=== PATIENT | female | born 1950 | race Caucasian/White ===

== ENCOUNTER 2017-03-31 05:48 | Observation (INO) ==
[2017-03-31] MEDS ORDERED: ASPIRIN PO ONE (06:17)
[2017-03-31] MEDS ORDERED: NITROGLYCERIN TOP ONE (06:17)
[2017-03-31 06:32] LABS: MANUAL DIFF NEEDED? NO
--- NOTE | 2017-03-31 06:33 | PROVIDER DOCUMENTATION ---
HPI-Cardiac General - General Chief Complaint: Shortness of Breath Stated Complaint: SOB Time Seen by Provider: 03/31/17 06:06 Source: patient, old records Allergies/Adverse Reactions: Patient Allergies Allergy/AdvReac Type Severity Reaction Status Date / Time atorvastatin calcium * Allergy Intermediate ITCHING, Verified 03/31/17 06:11 [From Lipitor] HEADACHE egg Allergy Unknown Verified 03/31/17 06:11 milk Allergy Unknown Verified 03/31/17 06:11 Home Medications: Home Medication List Medication Instructions Recorded Confirmed Last Taken Type Levothyroxine Sodium [Synthroid] 175 microgm PO DAILY 07/31/12 03/31/17 07:00 History Quetiapine [Seroquel] 300 mg PO QHS 07/31/12 03/31/17 03/30/17 20:00 History Rosuvastatin Calcium [Crestor] 20 mg PO DAILY 06/24/13 03/31/17 03/30/17 07:00 History Clopidogrel [Plavix] 75 mg PO DAILY 01/24/15 03/31/17 03/30/17 07:00 History Promethazine [Phenergan] 25 mg PA Q6H PRN PRN 01/25/15 03/31/17 04/24/15 History Venlafaxine E.r. [Effexor Xr] 150 mg PO QHS 04/24/15 03/31/17 03/30/17 20:00 History Hydrocodone Bit/Acetaminophen 1 each PO Q6-8H PRN PRN #0 04/10/16 03/31/17 Unknown Rx [Hydrocodon-Acetaminophn 10-325] Nicotine Patch [Nicoderm Patch] 21 mg TD DAILY #0 patch.td24 04/10/16 03/31/17 Unknown Rx Clonazepam [Klonopin] 2 mg PO BID 03/31/17 03/31/17 03/30/17 20:00 History Linaclotide [Linzess] 145 mcg PO DAILY 03/31/17 03/31/17 03/30/17 07:00 History - History of Present Illness-Cardiac Nature of Presenting Problem: pt states recurring episodes of chest "tightness" w/ dyspnea past 2 days, then awoke this a.m. w/ dyspnea and "felt like a bag of flour on my chest." reports hx of normal card cath ~ 5 yrs ago. CAD RF incl hx of tobacco, and lipids on Crestor. no exertional component, no diaphoresis, no emesis. Review of Systems - Adult - REVIEW OF SYSTEMS - ADULT Constitutional: reports: no symptoms reported Eyes: reports: no symptoms reported Ears, Nose, Mouth & Throat: reports: no symptoms reported Cardiovascular: reports: see HPI Respiratory: reports: see HPI Gastrointestinal: reports: no symptoms reported Genitourinary: reports: no symptoms reported Musculoskeletal: reports: no symptoms reported Integumentary: reports: no symptoms reported Neurological: reports: no symptoms reported Psychiatric: reports: no symptoms reported Endocrine: reports: no symptoms reported Hematologic/Lymphatic: reports: no symptoms reported Allergic/Immunologic: reports: no symptoms reported All Other Systems: Reviewed and Negative Past History - Adult - PAST MEDICAL HISTORY-ADULT Review of Records: reports: Old Records Reviewed Major Childhood Illnesses: reports: denies history Cardiovascular: reports: HTN, hyperlipidemia Respiratory: reports: denies history Gastrointestinal: reports: denies history Obstetrical/Gynecological: reports: denies history Genitourinary: reports: denies history Musculoskeletal: reports: denies history Neurological: reports: CVA, other (2 brain aneurysms) Psychiatric: reports: depression Endocrine/Immune: reports: thyroid disorder (hypothyroidism) Other Conditions: reports: blindness (right eye) - PRIOR SURGERIES/PROCEDURES Surgical/Procedure History: reports: appendectomy, hysterectomy, other ( endardectomy) - IMMUNIZATION STATUS Childhood Immunizations: See Nurse Assessment Flu Vaccine: See Nurse Assessment - FAMILY HISTORY Family History: reviewed, not pertinent Physical Exam-General - PHYSICAL EXAM-ADULT Initial Vital Signs Reviewed: Yes - CONSTITUTIONAL General Appearance: appears well, alert, no apparent distress - EYES Eyes: PERRL/EOMI, pink conjunctivae - HEAD, EARS, NOSE, MOUTH & THROAT HENMT: normocephalic/atraumatic, normal ENT inspection, pharynx normal - NECK Neck: non-tender, full range of motion, supple, normal inspection. negative: carotid bruit - RESPIRATORY Respiratory: chest non-tender, lungs clear - CARDIOVASCULAR Cardiovascular: normal peripheral pulses, regular rate, rhythm, no edema, no gallop, no JVD - GASTROINTESTINAL (ABDOMEN) Abdominal Exam: normal bowel sounds, soft, distended. 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, no motor/sensory deficits - PSYCHIATRIC Psych/Mental Status: normal mood/affect Progress - PLAN OF CARE/RESULTS Progress/Plan/Lab Results: Vital Signs - 8 hr 03/31/17 09:40 03/31/17 10:23 03/31/17 11:30 Pulse Rate 89 92 H 89 Respiratory Rate 19 18 18 Blood Pressure 133/73 104/62 146/86 O2 Sat by Pulse Oximetry 99 100 96 Laboratory Results - last 24 hr 03/31/17 03/31/17 03/31/17 05:59 05:59 05:59 WBC 7.25 RBC 4.39 Hgb 13.4 Hct 37.6 MCV 85.6 MCH 30.5 MCHC 35.6 RDW Std Deviation 12.4 Plt Count 227 MPV 10.4 Immature Gran % (Auto) 0.3 Neut % (Auto) 50.3 Lymph % (Auto) 37.9 [place] % (Auto) 9.1 Eos % (Auto) 2.1 Baso % (Auto) 0.3 Immature Gran # (Auto) 0.02 Neut # (Auto) 3.65 Lymph # (Auto) 2.75 [place] # (Auto) 0.66 H Eos # (Auto) 0.15 Baso # (Auto) 0.02 PT INR D-Dimer 0.23 Sodium 136 Potassium 4.2 Chloride 99 Carbon Dioxide 22 L Anion Gap 15 BUN 10 Creatinine 0.6 Estimated GFR/1.73 m2 > 60 BUN/Creatinine Ratio 17 Glucose 166 H Calculated Osmolality 275 Calcium 9.5 Magnesium 1.9 Total Bilirubin 0.44 AST 21 ALT 22 Alkaline Phosphatase 85 Creatine Kinase 83 Troponin T Lhm-I-Ulfalgzdajm Pept Total Protein 6.9 Albumin 4.0 Globulin 2.9 Albumin/Globulin Ratio 1.4 03/31/17 03/31/17 03/31/17 05:59 05:59 05:59 WBC RBC Hgb Hct MCV MCH MCHC RDW Std Deviation Plt Count MPV Immature Gran % (Auto) Neut % (Auto) Lymph % (Auto) Madison % (Auto) Eos % (Auto) Baso % (Auto) Immature Gran # (Auto) Neut # (Auto) Lymph # (Auto) Madison # (Auto) Eos # (Auto) Baso # (Auto) PT 10.6 INR 1.01 D-Dimer Sodium Potassium Chloride Carbon Dioxide Anion Gap BUN Creatinine Estimated GFR/1.73 m2 BUN/Creatinine Ratio Glucose Calculated Osmolality Calcium Magnesium Total Bilirubin AST ALT Alkaline Phosphatase Creatine Kinase Troponin T < 0.010 [id number] Pept 42 Total Protein Albumin Globulin Albumin/Globulin Ratio Orders Category Date Time Status Admit - [facility] Routine AdmDCTranf 03/31/17 08:16 Ordered Cardiac Monitoring DIRECTED Care 03/31/17 06:18 Completed Saline Loc NOW Care 03/31/17 06:18 Completed CHEST-1 VIEW [RAD] Stat Exams 03/31/17 06:18 Completed CBC WITH ELECTRONIC DIFF [HEME] Stat Lab 03/31/17 05:59 Completed CK PROFILE [SP CHEM] Stat Lab 03/31/17 05:59 Completed COMPREHENSIVE METABOLIC PANEL [CHEM] Stat Lab 03/31/17 05:59 Completed D-DIMER [CHEM] Stat Lab 03/31/17 05:59 Completed MAGNESIUM [CHEM] Stat Lab 03/31/17 05:59 Completed PRO B-NATRIURETIC PEPTIDE Stat Lab 03/31/17 05:59 Completed PROTIME WITH INR [COAG] Stat Lab 03/31/17 05:59 Completed TROPONIN T Stat Lab 03/31/17 05:59 Completed Aspirin Med 03/31/17 06:17 Discontinued 243 mg PO NOW ONE Nitroglycerin Med 03/31/17 06:17 Discontinued 1 inch TOP NOW ONE EKG [EKG] Stat Ther 03/31/17 06:18 Draft Transfer/Admit Order [TRANSFER] Routine Transfer 03/31/17 08:17 Completed Result Diagrams: 03/31/17 05:59 03/31/17 05:59 Departure - Departure Time of Disposition Decision: 10:30 DIAGNOSIS: Acute chest pain Disposition: ADMITTED INPATIENT 09 Certified Medical Emergency: Emergent Condition: Good - Critical Care Note This patient required my direct & personal management of CC.: No
[2017-03-31 06:35] LABS: BASO% 0.3 % (0.0-0.8); EOS# 0.15 X1000 (0.0-0.7); EOS% 2.1 % (0.0-10.0); HEMATOCRIT 37.6 % (37.0-47.0); HEMOGLOBIN 13.4 g/dL (12.0-16.0); IMM GRAN# 0.02 X1000 (0.0-0.04); IMM GRAN% 0.3 % (0.0-0.5); LYMPH# 2.75 X1000 (1.2-3.4); LYMPH% 37.9 % (20.5-51.1); MCH 30.5 PG (27-31); MCHC 35.6 g/dL (33-37); MCV 85.6 FL (81-99); MONO# 0.66 X1000 (0.11-0.59); MONO% 9.1 % (1.7-9.3); MPV 10.4 FL (7.4-10.4); NEUT% 50.3 % (42.2-75.2); PLT 227 X1000 (130-400); RBC 4.39 XMIL (4.2-5.4)
[2017-03-31 06:44] LABS: INR 1.01; PROTIME 10.6 Seconds (9.2-11.7)
[2017-03-31 07:01] LABS: AGAP 15; ALKALINE PHOSPHATASE 85 U/L (32-104); BUN 10 mg/dL (8-22); CALCIUM 9.5 mg/dL (8.8-10.2); CHLORIDE 99 mmol/L (98-107); CK PROFILE 83 U/L (24-173); COSMO 275; GOT 21 U/L (10-30); GPT 22 U/L (10-36); MAGNESIUM 1.9 mg/dL (1.5-2.7); POTASSIUM 4.2 mmol/L (3.5-5.1); SODIUM 136 mmol/L (136-145); TCO2 22 mmol/L (25-35); TOTAL BILIRUBIN 0.44 mg/dL (0.20-1.00); TOTAL PROTEIN 6.9 g/dL (6.3-8.3)
--- NOTE | 2017-03-31 07:19 | EKG Report ---
Test Performed on : 03/31/2017 05:53:44 AM Test Reason : Chest Pain Blood Pressure : / mmHG Vent. Rate : 097 BPM Atrial Rate : 097 BPM P-R Int : 130 ms QRS Dur : 082 ms QT Int : 390 ms P-R-T Axes : 036 015 069 degrees QTc Int : 495 ms Normal sinus rhythm. Cannot rule out Inferior infarct (cited on or before 31-JUL-2012) Abnormal ECG When compared with ECG of 14-DEC-2015 23:12, premature ventricular complexes. are no longer present Unconfirmed Result
--- NOTE | 2017-03-31 07:26 | Diag Imaging Result Doc PS360 ---
EXAM: CHEST-1 VIEW HISTORY: CTightness, dyspnea TECHNIQUE: Portable upright COMPARISON: 04/02/2016 FINDINGS: The lungs are well expanded. The heart is not enlarged. The vessels are not distended. There are no infiltrates. No effusion identified. IMPRESSION: Negative exam.. Electronically signed by Wojciech Thomas 03/31/2017 7:23 AM
[2017-03-31] MEDS ORDERED: PHENERGAN PR PRN (12:53)
[2017-03-31] MEDS: NORCO-10 PO PRN ×2 (13:45→20:26)
[2017-03-31] MEDS: NICODERM PATCH TD SCH (13:46)
[2017-03-31] MEDS: SYNTHROID PO SCH (13:46)
[2017-03-31] MEDS: CRESTOR PO SCH (13:46)
[2017-03-31] MEDS: KLONOPIN PO SCH ×2 (13:46→20:22)
[2017-03-31] MEDS: PLAVIX PO SCH (13:46)
[2017-03-31] MEDS: LINZESS PO SCH (13:53)
[2017-03-31] MEDS ORDERED: SEROQUEL PO SCH (21:00)
[2017-03-31] MEDS ORDERED: EFFEXOR XR PO SCH (21:00)
--- NOTE | 2017-03-31 22:03 | HISTORY AND PHYSICAL ---
CHIEF COMPLAINT: Chest pain. Shortness of breath. HISTORY OF PRESENT ILLNESS: She is a 67-year-old, white female, who was brought into the emergency room with chest tightness, woke up from sleep with shortness of breath. Patient was evaluated in the emergency room. EKG showed isolated Q-waves in the inferior leads. Chest x-ray was stable. She had a previous cardiac workup 5 years ago. Basically admitted to the hospital for rule out DC and further workup. Currently pain free. Based on the cardiac enzymes, further recommendations will be followed. Chest x-ray was negative. PAST MEDICAL HISTORY: Last stress test was 2008. Chronic back pain. Irritable bowel syndrome with constipation. Depression with anxiety. Hypertension. Hypothyroidism. 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 Peripheral vascular disease with internal carotid occlusion. in_the left side. Tobacco abuse. Vitamin B12 deficiency. PAST SURGICAL HISTORY: Appendectomy. Craniotomy for cerebral aneurysm repair, partial hysterectomy, bilateral mastoidectomy for chronic suppurative otitis media, left carotid endarterectomy and tubal ligation. MEDICATIONS: Seroquel 300 daily, Synthroid 175 daily, Crestor 20 daily, Plavix 75 daily, Phenergan as needed, Effexor 150 daily, nicotine patch, [place]arton 10 q.6h, Klonopin 2 p.o. b.i.d., Linzess 145 mg daily. ALLERGIES: None. SOCIAL HISTORY: , 3 children. Retired. Smoking half a pack a day. Living in [place]. No alcohol. FAMILY HISTORY: Father of heart attack at 41. Mom of DC. HEALTH MAINTENANCE: Flu shot 2015, colonoscopy [address] Taveras. REVIEW OF SYSTEMS: HEENT: No headache. No vision problem. No earache. No sore throat. Neck: No goiter. No neck pain. Cardiopulmonary: Chest pain, atypical. Shortness of breath. No PND. No orthopnea. No edema. GI: No nausea, vomiting, abdominal pain, constipation. : No history of hesitancy, frequency. Skin: No skin rashes. No joint pain. Neurologic: No focal symptoms or weakness. PHYSICAL EXAMINATION: VITAL SIGNS: Stable. 5 feet 3 inches, 169 pounds. HEENT: Atraumatic, normocephalic. Pupils equal, react to light. NECK: Supple. No lymphadenopathy. No goiter. CHEST: Bilateral air entry. HEART: Sounds are regular. ABDOMEN: Belly is soft, nontender. Good bowel sounds. No masses palpable. EXTREMITIES: No peripheral edema, cyanosis. NEUROLOGIC: No obvious neurological deficits. INVESTIGATIONS: Chest x-ray is negative. EKG, normal sinus, nothing acute. CBC is normal. PT/INR is normal. SMA7 is normal. Glucose 166. Cardiac enzymes were negative. ASSESSMENT AND PLAN: 1. A 67-year-old white female, admitted to the hospital with chest pain, shortness of breath, atypical. Baseline electrocardiogram, cardiac enzymes were negative. Currently pain free. Discussed with the patient. We will do outpatient tomorrow based on the cardiac enzymes. Continue aspirin. 2. Chronic nicotine abuse. Quit smoking with nicotine patch and nitroglycerin as needed. 3. Hyperlipidemia. On Crestor. 4. Reconcile home medications. 5. Irritable bowel syndrome with constipation. Continue on Linzess. 6. Hypothyroidism on Synthroid. 7. We will keep her nothing per oral and will follow up. cc: Job Lucero MD MTDD
[2017-04-01] MEDS: NORCO-10 PO PRN (05:14)
[2017-04-01 07:54] VITALS: BP 126/50
[2017-04-01] MEDS ORDERED: CYANOCOBALAMIN IM ONE (09:00)
[2017-04-01] MEDS: PLAVIX PO SCH (09:09)
[2017-04-01] MEDS: KLONOPIN PO SCH (09:09)
[2017-04-01] MEDS: SYNTHROID PO SCH (09:09)
[2017-04-01] MEDS: LINZESS PO SCH (09:09)
[2017-04-01] MEDS: CRESTOR PO SCH (09:09)
[2017-04-01] MEDS: NICODERM PATCH TD SCH (09:20)
--- NOTE | 2017-04-01 22:56 | DISCHARGE SUMMARY ---
ADMISSION DATE: 03/31/2017 DISCHARGE DATE: 04/01/2017 DISCHARGING DIAGNOSIS: 1. Atypical chest pain. 2. Chronic obstructive pulmonary disease. 3. Chronic back pain. 4. Irritable bowel syndrome with constipation. 5. Depression with anxiety. 6. Hypertension. 7. Hypothyroidism. 8. Peripheral vascular disease with 100 % carotid occlusion on the left side. 9. Tobacco abuse. 10. Vitamin B12 deficiency. 11. Status post aneurysm on the right side. BRIEF HISTORY: Please see the H and P that was done on 03/31/2017. In brief, she is a 67-year- old, white female, who was admitted to the hospital with chest pain, shortness of breath. Initial workup was unremarkable. Admitted to the hospital for observation. During this hospital course, patient is pain free. EKG normal sinus, nothing acute. Serial cardiac enzymes were negative. I did explain to the patient about the workup; unfortunately, patient ate breakfast and she wants to do as an outpatient for echo and a stress test. LABORATORIES: CBC: White cell count 7.2, hematocrit 37, platelets 227,000. PT 10, INR 1. SMA7, sodium 136, potassium 4.2, chloride 92, BUN 10, creatinine 0.6, glucose 166, cardiac enzymes were normal. IMAGING: Chest x-ray was nothing acute. The patient was requesting B12 injection. DISCHARGE INSTRUCTIONS FOLLOWS: Follow up in my office next week for echo and a stress test. DISCHARGE MEDICINE: Seroquel 300 daily, Synthroid 175 mcg daily, Crestor 20 daily, Plavix 75 daily, Effexor 150 daily, nicotine patch once daily, Klonopin 2 mg p.o. b.i.d., which is changed to 1 mg p.o. b.i.d., Linzess 290 mcg daily, ProAir as needed. cc: Job Lucero MD MTDD
== END 2017-04-01 09:56 | disposition home or self-care (01) ==
LOC: ED 05:48 → 3N 05:48
PROVIDERS: ADMIT Internal Medicine; ATTEND Internal Medicine